=== PATIENT | male | born 1950 ===

== ENCOUNTER 2021-01-22 15:47 | Emergency (ER) | payer SELFPAY ==
[2021-01-22 15:59] VITALS: BP 148/72
[2021-01-22] MEDS ORDERED: DIPHtheria,PERTUSSIS(ACELL),TETANUS VACCINE/PF 0.5 ML VIAL IM ONE (16:02)
[2021-01-22] MEDS ORDERED: oxyCODONE 5 MG TAB PO ONE (16:02)
--- NOTE | 2021-01-22 16:33 | Emergency Department Report ---
ED Fall HPI - General Chief Complaint: Head Injury Stated Complaint: TRIP AND FALL/HEAD LACERATION Time Seen by Provider: 01/22/21 16:01 Source: patient, family Mode of arrival: Wheelchair - History of Present Illness Initial Comments: czech interpretation by patients daughter with pts permission pt is a 70 yo male who presents to the ED with c/o a fall that occurred just P TA. pt states he was walking outside by the pool and accidentally slipped and fell on the concrete. he is c/o headache, neck pain, and right shoulder/arm pain. he has a laceration to the forehead. he denies any LOC, vision changes, numbness, weakness, bowel or bladder incontinence, back pain, BLE pain, any other injury. he is unsure of his last tetanus immunization. pmhx arthritis and liver disease. no allergies to meds. - Related Data Allergies Allergy/AdvReac Type Severity Reaction Status Date / Time No Known Allergies Allergy Unverified 01/22/21 15:54 ED Review of Systems ROS: Stated complaint: TRIP AND FALL/HEAD LACERATION Other details as noted in HPI Comment: All other systems reviewed and negative ED Past Medical Hx - Past Medical History Hx Asthma: Yes (RA) - Social History Smoking Status: Never Smoker Substance Use Type: None ED Physical Exam - General Limitations: Language Barrier General appearance: alert, in no apparent distress - Head Head exam: Present: other (2 cm superficial laceration to the forehead, no active bleeding, no muscle involvement, no foreign body, no skull or facial bony ttp, no deformity, no crepitus ) - Eye Eye exam: Present: normal appearance, PERRL, EOMI, other (no racoon eyes, no signs of entrapment). Absent: periorbital swelling, periorbital tenderness Pupils: Present: normal accommodation - ENT ENT exam: Present: mucous membranes moist - Neck Neck exam: Present: normal inspection, tenderness (bilateral C-spine paraspinal muscular ttp, no midline C-spine ttp, no step offs, no deformities), full ROM - Respiratory Respiratory exam: Present: normal lung sounds bilaterally. Absent: respiratory distress, wheezes, rales, rhonchi, stridor, chest wall tenderness, accessory muscle use, decreased breath sounds, prolonged expiratory - Cardiovascular Cardiovascular Exam: Present: regular rate, normal rhythm, normal heart sounds. Absent: systolic murmur, diastolic murmur, rubs, gallop - Extremities Exam Extremities exam: Present: other (ttp to the right anterior shoulder and right lateral humerus, FROM of the BUE, no deformity, no sulcus sign, clavicles are equal, no clavicular ttp, neurovascularly intact BUE) - Back Exam Back exam: Present: normal inspection, full ROM. Absent: paraspinal tenderness, vertebral tenderness - Neurological Exam Neurological exam: Present: alert, oriented X3, CN II-XII intact, normal gait. Absent: motor sensory deficit - Psychiatric Psychiatric exam: Present: normal affect, normal mood - Skin Skin exam: Present: warm, dry ED Course Vital Signs 01/22/21 15:56 Temperature 98.2 F Pulse Rate 80 Respiratory 20 Rate Blood Pressure 148/72 O2 Sat by Pulse 97 Oximetry - Laceration /Wound Repair Head Wound Location: face (center forehead) Wound Length (cm): 2 Wound's Depth, Shape: superficial Wound Explored: clean Irrigated w/ Saline (ccs): 100 Betadine Prep?: Yes Volume Anesthetic (ccs): 0 Wound Repaired With: Steri-strips, Dermabond Sterile Dressing Applied?: Yes Progress: wound irrigated with saline and thoroughly scrubbed with betadine, multiple layers of dermabond placed with good skin approximation, pt tolerated well, bleeding controlled, no complication ED Medical Decision Making - Radiology Data Radiology results: report reviewed Ordering Physician: RONY VALENCIA Date of Service: 01/22/21 Procedure(s): XR shoulder 2+V RT Accession Number(s): [id number] cc: RONY VALENCIA Fluoro Time In Minutes: RIGHT HUMERUS 4 VIEWS RIGHT SHOULDER 3 VIEWS INDICATION / CLINICAL INFORMATION: Pain in right arm and right shoulder after fall. COMPARISON: None available. FINDINGS: BONES and JOINT(S): No acute fracture or subluxation. There is mild osteoarthritis along the AC joint. No other significant degenerative changes. SOFT TISSUES: No significant abnormality. ADDITIONAL FINDINGS: None. IMPRESSION: 1. No acute findings. Signer Name: Candido Contreras MD Signed: 01/22/2021 4:51 PM Workstation Name: [id number] Transcribed By: MN Dictated By: Candido Contreras MD Electronically Authenticated By: Candido Contreras MD Signed Date/Time: 01/22/21 5239 DD/ 49 TD/TT: Ordering Physician: RONY VALENCIA Date of Service: 01/22/21 Procedure(s): XR humerus 2+V RT Accession Number(s): [id number] cc: RONY VALENCIA Fluoro Time In Minutes: RIGHT HUMERUS 4 VIEWS RIGHT SHOULDER 3 VIEWS INDICATION / CLINICAL INFORMATION: Pain in right arm and right shoulder after fall. COMPARISON: None available. FINDINGS: BONES and JOINT(S): No acute fracture or subluxation. There is mild osteoarthritis along the AC joint. No other significant degenerative changes. SOFT TISSUES: No significant abnormality. ADDITIONAL FINDINGS: None. IMPRESSION: 1. No acute findings. Signer Name: Candido Contreras MD Signed: 01/22/2021 4:51 PM Workstation Name: [id number] Transcribed By: DARRIN Dictated By: Candido Contreras MD Electronically Authenticated By: Candido Contreras MD Signed Date/Time: 01/22/211650 DD/ 49 TD/TT: Ordering Physician: RONY VALENCIA Date of Service: 01/22/21 Procedure(s): CT head/brain wo con Accession Number(s): [id number] cc: RONY VALENCIA CT HEAD WITHOUT CONTRAST INDICATION : fell, hit head, laceration to forehead, neck pain. TECHNIQUE: Axial, coronal and sagittal CT imaging was performed from the skull apex through the skull base without contrast. All CT scans at this location are performed using CT dose reduction for ALARA by means of automated exposure control. COMPARISON: None available. FINDINGS: PARENCHYMA: No mass, midline shift, hemorrhage, extraaxial collection or acute territorial infarction. VENTRICLES: Symmetric and normal in size. SOFT TISSUES: A small laceration is seen along the midline of the upper forehead with associated mild edema. No other acute abnormality of the visualized soft tissues/orbits. BONES: No acute osseous abnormality. SINUSES: No significant abnormality. ADDITIONAL FINDINGS: None. IMPRESSION: 1. No acute intracranial abnormality. 2. Small forehead laceration. Signer Name: Candido Contreras MD Signed: 01/22/2021 4:45 PM Workstation Name: [id number] Transcribed By: DARRIN Dictated By: Candido Contreras MD Electronically Authenticated By: Candido Contreras MD Signed Date/Time: 01/22/211644 DD/ 43 TD/TT: Ordering Physician: RONY VALENCIA Date of Service: 01/22/21 Procedure(s): CT cervical spine wo con Accession Number(s): [id number] cc: RONY VALENCIA CT CERVICAL SPINE WITHOUT CONTRAST INDICATION: Neck injury after fall. COMPARISON: None available. TECHNIQUE: Axial, coronal and sagittal CT imaging of the cervical spine without contrast was performed. All CT scans at this location are performed using CT dose reduction for ALARA by means of automated exposure control. FINDINGS: VERTEBRAE:No acute fracture. There is exaggeration of the cervical lordosis with grade 1 anterolisthesis at C4-C5. DISC SPACES: Multilevel moderate to severe discogenic degenerative changes are most notable at C6- C7. Severe degenerative changes are also noted at the atlantoaxial joint. FACET JOINTS:There is multilevel facet arthropathy bilaterally. CENTRAL CANAL: No significant central canal stenosis. There is multilevel mild bilateral neural foraminal narrowing. SOFT TISSUES:No significant abnormality. LUNG APICES: No significant abnormality. ADDITIONAL FINDINGS: None IMPRESSION: 1. No acute findings. 2. Moderate to severe cervical spondylosis. Signer Name: Candido Contreras MD Signed: 01/22/2021 4:53 PM Workstation Name: [id number] Transcribed By: DARRIN Dictated By: Candido Contreras MD Electronically Authenticated By: Candido Contreras MD Signed Date/Time: 01/22/211652 DD/ 44 TD/TT: - Medical Decision Making czech interpretation by patients daughter with pts permission pt is a 70 yo male who presents to the ED with c/o a fall that occurred just [employer]. pt states he was walking outside by the pool and accidentally slipped and fell on the concrete. he is c/o headache, neck pain, and right shoulder/arm pain. he has a laceration to the forehead. he denies any LOC, vision changes, numbness, weakness, bowel or bladder incontinence, back pain, BLE pain, any other injury. he is unsure of his last tetanus immunization. pmhx arthritis and liver disease. no allergies to meds. vitals are normal. on exam: 2 cm superficial laceration to the forehead, no active bleeding, no muscle involvement, no foreign body, no skull or facial bony ttp, no deformity, no crepitus, bilateral C-spine paraspinal muscular ttp, no midline C-spine ttp, no step offs, no deformities, ttp to the right anterior shoulder and right lateral humerus, FROM of the BUE, no deformity, no sulcus sign, clavicles are equal, no clavicular ttp, neurovascularly intact BUE, no focal neuro deficits. XR right shoulder/humerus: 1. No acute findings. CT head: 1. No acute intracranial abnormality. 2. Small forehead laceration. CT cervical spine: 1. No acute findings. 2. Moderate to severe cervical spondylosis. Patient given pain medication while in the emergency department as he did not drive and symptoms improved. Patient given a Tdap while in the ED. Laceration repaired per procedure note with Dermabond and Steri-Strips. Advised patient please keep area clean, dry, covered. please do not get the area wet on the forehead for two days. after two days may wash gently and pat dry. no hot tub, no pool. follow up with a primary care doctor for reexamination. return to the emergency room for any new or worsening symptoms. Critical care attestation.: If time is entered above; I have spent that time in minutes in the direct care of this critically ill patient, excluding procedure time. ED Disposition Clinical Impression: Neck pain Laceration of forehead Qualifiers: Encounter type: initial encounter Qualified Code(s): S01.81XA - Laceration without foreign body of other part of head, initial encounter Head injury Qualifiers: Encounter type: initial encounter Qualified Code(s): S09.90XA - Unspecified injury of head, initial encounter Right shoulder pain Qualifiers: Chronicity: acute Qualified Code(s): M25.511 - Pain in right shoulder Fall Qualifiers: Encounter type: initial encounter Qualified Code(s): W19.XXXA - Unspecified fall, initial encounter Disposition: TO HOME OR SELFCARE Is pt being admited?: No Does the pt Need Aspirin: No Condition: Stable Instructions: Musculoskeletal Pain, Sutures, Campbell, or Adhesive Wound Closure, [id number] Additional Instructions: please keep area clean, dry, covered. please do not get the area wet on the forehead for two days. after two days may wash gently and pat dry. no hot tub, no pool. follow up with a primary care doctor for reexamination. return to the emergency room for any new or worsening symptoms. Referrals: PRIMARY CARE, [Primary Care Provider] - 2-3 Days Time of Disposition: 17:47 Print Language: FAROESE
--- NOTE | 2021-01-22 16:50 | Cat Scan Report ---
CT HEAD WITHOUT CONTRAST INDICATION : fell, hit head, laceration to forehead, neck pain. TECHNIQUE: Axial, coronal and sagittal CT imaging was performed from the skull apex through the skul l base without contrast. All CT scans at this location are performed using CT dose reduction for ALA RA by means of automated exposure control. COMPARISON: None available. FINDINGS: PARENCHYMA: No mass, midline shift, hemorrhage, extraaxial collection or acute territorial infarctio n. VENTRICLES: Symmetric and normal in size. SOFT TISSUES: A small laceration is seen along the midline of the upper forehead with associated mil d edema. No other acute abnormality of the visualized soft tissues/orbits. BONES: No acute osseous abnormality. SINUSES: No significant abnormality. ADDITIONAL FINDINGS: None. IMPRESSION: 1. No acute intracranial abnormality. 2. Small forehead laceration. Signer Name: Candido Contreras MD Signed: 01/22/2021 4:45 PM Workstation Name: [id number]
--- NOTE | 2021-01-22 16:55 | XRay Report ---
RIGHT HUMERUS 4 VIEWS RIGHT SHOULDER 3 VIEWS INDICATION / CLINICAL INFORMATION: Pain in right arm and right shoulder after fall. COMPARISON: None available. FINDINGS: BONES and JOINT(S): No acute fracture or subluxation. There is mild osteoarthritis along the AC joint . No other significant degenerative changes. SOFT TISSUES: No significant abnormality. ADDITIONAL FINDINGS: None. IMPRESSION: 1. No acute findings. Signer Name: Candido Contreras MD Signed: 01/22/2021 4:51 PM Workstation Name: [id number]
--- NOTE | 2021-01-22 16:57 | Cat Scan Report ---
CT CERVICAL SPINE WITHOUT CONTRAST INDICATION: Neck injury after fall. COMPARISON: None available. TECHNIQUE: Axial, coronal and sagittal CT imaging of the cervical spine without contrast was performe d. All CT scans at this location are performed using CT dose reduction for ALARA by means of automat ed exposure control. FINDINGS: VERTEBRAE:No acute fracture. There is exaggeration of the cervical lordosis with grade 1 anterolisthe sis at C4-C5. DISC SPACES: Multilevel moderate to severe discogenic degenerative changes are most notable at C6-C7. Severe degenerative changes are also noted at the atlantoaxial joint. FACET JOINTS:There is multilevel facet arthropathy bilaterally. CENTRAL CANAL: No significant central canal stenosis. There is multilevel mild bilateral neural nneka inal narrowing. SOFT TISSUES:No significant abnormality. LUNG APICES: No significant abnormality. ADDITIONAL FINDINGS: None IMPRESSION: 1. No acute findings. 2. Moderate to severe cervical spondylosis. Signer Name: Candido Contreras MD Signed: 01/22/2021 4:53 PM Workstation Name: [id number]
== END 2021-01-22 18:05 | disposition home or self-care (01) ==
LOC: ED 15:47
DX: S01.81XA Laceration without foreign body of other part of head, initial encounter (principal); S09.90XA Unspecified injury of head, initial encounter; M54.2 Cervicalgia; M25.511 Pain in right shoulder; J45.909 Unspecified asthma, uncomplicated; W01.0XXA Fall on same level from slipping, tripping and stumbling without subsequent striking against object, initial encounter; Y93.89 Activity, other specified; Y92.34 Swimming pool (public) as the place of occurrence of the external cause; Y99.8 Other external cause status
CPT/HCPCS: 70450; 72125; 90471; 90715